=== PATIENT | female | born 1985 | race Caucasian/White ===

== ENCOUNTER 2017-11-25 01:03 | Observation (INO) | payer OTHER ==
[2014-08-09 15:30] VITALS: Ht 175.3 cm; Wt 64.0 kg
[2017-11-25] VITALS (11 sets, daily range): BP systolic 107–120; BP diastolic 57–87
[~2017-11-25] VITALS: Ht 175.3 cm; Wt 64.0 kg
[~2017-11-25 01:03] MED LIST: CYC10 PO; IBU800 PO; IBUP800T37 PO; Ibuprofen PO; PER PO
[2017-11-25 06:15] LABS: PLATELET COUNT, AUTOMATED 263 K/uL (150-450)
[2017-11-25] MEDS ORDERED: LIDOCAINE/SOD BICARB 8.4% SYR ID ONE (06:30)
[2017-11-25] MEDS ORDERED: FAMOTIDINE 20 MG TAB PO ONE (06:30)
[2017-11-25] MEDS ORDERED: MIDAZOLAM 2 MG/2 ML VIAL IVP ONE (06:30)
[2017-11-25] MEDS ORDERED: PHENAZOPYRIDINE 200 MG TAB PO ONE (06:30)
[2017-11-25] MEDS ORDERED: cefOXitin/DEX(*) 2GM/50ML PREM 50 ML IVPB ONE (06:30)
[2017-11-25] MEDS ORDERED: NORMOSOL R SOLN(*) 1000 ML BAG 1,000 ML IV PRN (06:30)
[2017-11-25] MEDS ORDERED: ROPIVACAINE 0.2% 20 ML VIAL ONE (06:42)
[2017-11-25] MEDS ORDERED: NS(*) 0.9% 100 ML BAG 100 ML ONE (06:43)
[2017-11-25] MEDS ORDERED: VASOPRESSIN 20 UNIT/ML VIAL ONE (06:43)
[2017-11-25] MEDS ORDERED: MORPHINE PF 5 MG/10 ML AMP ONE (07:20)
[2017-11-25] MEDS ORDERED: fentaNYL CITR 250 MCG/5 ML AMP ONE (07:21)
[2017-11-25] MEDS ORDERED: LIDOCAINE MPF 1% 5 ML VIAL ONE (07:22)
[2017-11-25] MEDS ORDERED: PROPOFOL EMUL(*) 10MG/ML 20 ML 20 ML ONE ×2 (07:22→08:59)
[2017-11-25] MEDS ORDERED: ROCURONIUM BROM 10 MG/ML 10 ML ONE (07:45)
[2017-11-25] MEDS ORDERED: DEXAMETHASONE SOD 4 MG/ML VIAL ONE (07:45)
[2017-11-25] MEDS ORDERED: ONDANSETRON 4 MG/2 ML VIAL ONE (07:59)
[2017-11-25] MEDS ORDERED: ACETAMINOPHEN(*)1000 MG/100 ML 100 ML IVPB ONE (08:39)
[2017-11-25] MEDS ORDERED: KETOROLAC 30 MG/ML VIAL ONE (08:44)
[2017-11-25] MEDS ORDERED: SUGAMMADEX SOD 200 MG/2 ML SDV ONE (09:09)
[2017-11-25] MEDS ORDERED: fentaNYL CITR 100 MCG/2 ML AMP ONE ×2 (09:35→10:19)
[2017-11-25] MEDS ORDERED: ONDANSETRON 4 MG/2 ML VIAL IV PRN (09:55)
[2017-11-25] MEDS ORDERED: ACETAMINOPHEN 325 MG TAB PO PRN (09:55)
[2017-11-25] MEDS ORDERED: PROMETHAZINE 25 MG/ML 1 ML AMP IVP PRN (09:55)
[2017-11-25] MEDS ORDERED: DLR(*) 1000 ML BAG 1,000 ML IV PRN (09:55)
[2017-11-25] MEDS ORDERED: SIMETHICONE 80 MG CHEW CHEW PRN (09:55)
[2017-11-25] MEDS ORDERED: ZOLPIDEM TARTRATE 10 MG TAB PO PRN (09:55)
--- NOTE | 2017-11-25 10:03 | Post Operative Note ---
Operative Note - [facility] Operative Day Date: Nov 25, 2017 Time: 10:02 Physicians Surgeon: Sameer Steam Heating Installer: Hoang Anesthesia: GETA Diagnosis Pre-Op Diagnosis: Dysmenorrhea Menometrorrhagia Post-Op Diagnosis: same Procedure Findings: enlarged uterus Procedure(s): LAVH BS MMC Cysto Specimen Removed:(Maybe N/A): Uterus, tubes Complications: 911121 Fluids Fluids: 1600 Estimated Blood Loss: <100 ml Dictated Date OP Note Dictated: Nov 25, 2017 Time OP Note Dictated: 10:03 Copies to: AMINATA AHN MD, TRAVIS MD Nov 25, 2017 10:03
[2017-11-25] MEDS ORDERED: diphenhydrAMINE 25 MG CAP PO PRN (10:30)
[2017-11-25] MEDS ORDERED: NALBUPHINE HCL 10 MG/ML AMP IVP PRN (10:30)
[2017-11-25] MEDS ORDERED: HYDROmorphone HCL 2 MG/ML SDV ONE (10:39)
[2017-11-25] MEDS: KETOROLAC 30 MG/ML VIAL IVP SCH ×2 (15:31→21:40)
--- NOTE | 2017-11-25 15:57 | OPERATIVE REPORT 1 ---
EVENT DATE: November 25, 2017 SURGEON: [place] Estrella MD ANESTHESIOLOGIST: Mehdi Pacheco MD ANESTHESIA: General endotracheal. CHAIN TESTING MACHINE OPERATOR: Re Bolton MD PREOPERATIVE DIAGNOSES 1. Dysmenorrhea. 2. Menometrorrhagia. 3. Previous section times four. POSTOPERATIVE DIAGNOSES 1. Dysmenorrhea. 2. Menometrorrhagia. 3. Previous section times four. PROCEDURES PERFORMED 1. Laparoscopic-assisted vaginal hysterectomy. 2. Bilateral salpingectomy. 3. Diagnostic cystoscopy. 4. Modified Jenkins culdoplasty. ESTIMATED BLOOD LOSS Less than 100 mL. FLUIDS Crystalloid 1600 mL IV. URINE OUTPUT Not measured. FINDINGS Enlarged uterus. Scarring of the previous section site. Otherwise, normal-appearing uterus, tubes, and ovaries. Normal right upper quadrant. Retrocecal appendix in the right lower quadrant. DESCRIPTION OF PROCEDURE The patient was brought to the operating room with a working IV and placed in the dorsal supine position. She was placed under general endotracheal anesthesia by Dr. Pacheco and moved to the dorsal lithotomy position. She was then prepped and draped in the usual sterile fashion. A weighted speculum was placed in the vagina, and the cervix was grasped on the anterior lip with a single-toothed tenaculum. It was carefully sounded to a depth of 11 cm. A size 10 BRICE uterine manipulator was selected and assembled. The cervix was dilated to accommodate, and it was passed through the cervix into the uterus. The bulb was inflated and secured, and all other instruments were then removed. The legs were brought back to the supine position, and gloves were changed. The umbilicus received a local injection of 0.2% Naropin. A stab incision was made with the 11 blade scalpel in a transverse fashion. A Veress needle was then passed through this incision into the abdomen while elevating and stabilizing the anterior abdominal wall. A pneumoperitoneum was created to an intra-abdominal pressure of 20 mmHg. A 5 mm bladeless trocar was then passed through this incision into the abdomen under direct visualization with the scope and without incident. Two additional 5 mm ports were placed in the right and left lower quadrants using direct visualization and without incident. The pressure was reduced to 15 mmHg. The Aguilera catheter had been placed. The bladder was drained. The uterus and pelvis were inspected with the above findings noted. The left fallopian tube was grasped on the fimbriated end and put on medial stretch. It was cauterized with the Gyrus device and dissected along its mesosalpinx connection to the uterine ligament. This was grasped and cauterized with the Gyrus device and transected, as well as the round ligament on this side. The broad ligament was then entered and into anterior and posterior leaflets. There was some scarring of the bladder reflection up to this left broad ligament. This was taken down, and dissecting into the broad ligament, we were able to dissect this down successfully away from the uterus. The prior section scar was dissected down using the Gyrus device, and the bladder was pushed back. The posterior leaflet was dissected along the uterine vasculature to the uterosacral ligaments. This exposed the uterine vessels which were cauterized, but not transected. The same procedure was followed on the contralateral side, dissecting the tube away from the ovary and its mesosalpinx connection, cauterizing and transecting the utero-ovarian ligament as well as the round ligament on the right side. The broad ligament was then entered sharply and into anterior and posterior leaflets. The anterior leaflet continued along its anterior reflection to complete the bladder reflection. The posterior leaflet was followed posteriorly, skeletonizing the uterine vasculature. This was then cauterized, but not transected. No complications at this point. The pneumoperitoneum was released. All instruments were secured to the patient's abdomen and covered with a sterile drape. The legs were brought back to the lithotomy position, and we proceeded vaginally. A weighted speculum was placed in the vagina. The cervix was grasped on the anterior and posterior lips with Jeremy clamps. The cervix was circumferentially injected with diluted Pitressin solution, and a circumferential incision was made with the Bovie. The posterior cul-de-sac was entered sharply by putting the posterior vagina on stretch and entering the posterior cul-de-sac with a sharp, curved Tracy scissors. The long-bill weighted speculum was inserted here. This exposed the uterosacral ligaments which were bilaterally clamped, cut, suture ligated, and tagged for lateral identification. Anteriorly, the vaginal mucosa was dissected off the cervix using sharp dissection and pushed back to reach the laparoscopic dissection. A right angle was inserted here, and the bladder was retracted away from the operative area. This exposed the cardinal ligaments which were bilaterally clamped, cut, and suture ligated. The remaining vascular pedicle was isolated, clamped, cut, and the uterus was excised and sent to Pathology. The remaining pedicle was suture ligated and tagged. At this point, there was a vascular bleeder on the left uterine vascular pedicle which received another curved Demond clamp and suture ligated for excellent hemostasis. A modified Jenkins culdoplasty was performed by securing the uterosacral ligaments to the ipsilateral vaginal cuff and obliterating the posterior cul-de-sac with external Jenkins stitches. The parietal peritoneum was closed with a running pursestring stitch. The uterosacral ligaments were tied and secured in the midline, and the vaginal mucosa was repaired using a 2-0 Vicryl in a running locking stitch. The Aguilera catheter was then removed. Diagnostic cystoscopy was performed. Both ureteral orifices were observed to have excellent urine jets. There were no visible complications or injuries to the bladder. The bladder was drained. The Aguilera catheter was replaced. The legs were brought back to the supine position. Gloves were changed, and we proceeded again laparoscopically, inspecting the surgical results from the laparoscope. There was excellent hemostasis, no visible complications, and excellent support of the vagina at its apex. Both ovaries appeared viable and healthy. The pelvis was irrigated and suctioned dry. The procedure was terminated. All instruments were removed. The pneumoperitoneum was suctioned out. The skin incisions were repaired with a 4-0 Monocryl simple subdermal and covered with Dermabond skin adhesive. She tolerated the procedure well. Sponge, lap, needle , and instrument counts were all correct times three. She was taken to recovery in stable condition. LIZ
[2017-11-25] MEDS ORDERED: FAMOTIDINE 20 MG TAB PO SCH (21:00)
[2017-11-25] MEDS ORDERED: DOCUSATE CALCIUM 240 MG CAP PO SCH (21:00)
[2017-11-25] MEDS ORDERED: HYDROmorphone HCL 2 MG TAB PO PRN (22:05)
[2017-11-26] MEDS ORDERED: INFLUENZA VIRUS VAC 0.5 ML SYR IM ONLY ONE (09:55)
[2017-11-26] MEDS ORDERED: IBUPROFEN 800 MG TAB PO PRN (10:00)
== END 2017-11-25 22:15 | disposition home or self-care (01) ==
LOC: OR 01:03 → OB 11:07
PROVIDERS: ADMIT Obstetrics & Gynecology; ATTEND Obstetrics & Gynecology
DX: N94.6 Dysmenorrhea, unspecified (principal); N92.1 Excessive and frequent menstruation with irregular cycle
CPT/HCPCS: 36415; 58552; 84703; 85014; 85018; 85025; 88302; G0378; J0131; J0694; J1100; J1170; J1885; J2001; J2270; J2405; J2704; J2795; J3010; J3490; J7050

== ENCOUNTER → 2018-02-22 | Outpatient (CLI) | payer OTHER ==
[2014-08-09 15:30] VITALS: BMI 25.9
--- NOTE | 2018-02-23 10:37 | RADIOLOGY IMAGING REPORT ---
FAC[place] [facility] [place] NAME: ELKE GREGORIO : [id number] MR: [id number] V: [id number] EXAM DATE: [id number] ORDERING PHYSICIAN: AMINATA AHN TECHNOLOGIST: Joselyn Curran PROCEDURE:BILATERAL DIAGNOSTIC DIGITAL MAMMOGRAM WITH CAD ASSISTED INTERPRETATION & 3D TOMOSYNTHESIS COMPARISON:None. INDICATIONS:LEFT BREAST LUMP, PALPABLE LUMP APPROXIMATE 2:30 POSITION LATERAL LEFT BREAST FINDINGS: Dense heterogeneous fibroglandular tissue is seen throughout the breasts. There is no demonstration of malignant appearing mass, malignant appearing calcification or other secondary sign of malignancy in either breast. DIAGNOSTIC CATEGORY 0--INCOMPLETE: NEED ADDITIONAL IMAGING EVALUATION. RECOMMENDATIONS: BREAST MRI: BILATERAL BREASTS. IMPRESSION: BIRADS 4: Bilateral breast MR with & without contrast recommended to evaluate the ovoid hypoechoic mass in the far lateral 2:30 position of the left breast for which no mammographic correlate could be demonstrated. Dictated by: Luz Hamilton M.D. on 02/22/2018 at 17:03 Transcribed by: EDITH on 02/23/2018 at 7:32 Approved by: Luz Hamilton M.D. on 02/23/2018 at 10:36 [facility]
--- NOTE | 2018-02-23 10:37 | RADIOLOGY IMAGING REPORT ---
FACILITY: [facility] PATIENT NAME: ELKE GREGORIO : [id number] MR: [id number] V: [id number] EXAM DATE: [id number] ORDERING PHYSICIAN: AMINATA AHN TECHNOLOGIST: Kanu Velasquez PROCEDURE:US LEFT BREAST COMPLETE COMPARISON:None. INDICATIONS:LEFT BREAST LUMP FINDINGS: In the far lateral 2:30 position of the left breast there is a 1.1 x 0.4 x1.7cm ovoid hypoechoic structure that appears extremely hypervascular. There is no acoustic shadowing. Several mildly dilated ducts are identified in the 4 o'clock position 1cm from the nipple measuring up to 2mm in diameter. Three fatty replaced lymph nodes are identified in the left axilla, the largest measuring 1.4 x 0.5 x 1cm. Today's mammogram did not demonstrate the hypoechoic mass in the 2:30 position of the far lateral left breast. Given patient's family history of lymphoma, a bilateral breast MR with & without contrast is recommended for further evaluation. DIAGNOSTIC CATEGORY 0--INCOMPLETE: NEED ADDITIONAL IMAGING EVALUATION. RECOMMENDATIONS: BREAST MRI: BILATERAL BREASTS. IMPRESSION: BIRADS 0: Incomplete, need additional imaging evaluation. Bilateral breast MR with & without contrast recommended for further evaluation as described above. Dictated by: Luz Hamilton M.D. on 02/22/2018 at 17:01 Transcribed by: EDITH on 02/23/2018 at 7:37 Approved by: Luz Hamilton M.D. on 02/23/2018 at 10:36 [facility]
== END ==
LOC: US 15:30
PROVIDERS: ATTEND Obstetrics & Gynecology
DX: N60.42 Mammary duct ectasia of left breast (principal); N63.21 Unspecified lump in the left breast, upper outer quadrant; R92.8 Other abnormal and inconclusive findings on diagnostic imaging of breast
CPT/HCPCS: 77062; 77066